=== PATIENT | male | born 1940 | race Caucasian/White ===

== ENCOUNTER 2019-10-05 15:35 | Inpatient (IN) | payer MEDICARE, OTHER ==
[~2019-10-05] VITALS: Ht 172.7 cm; Wt 60.3 kg
[~2019-10-05 15:35] MED LIST: NO HOME MEDS; PANT-47 PO; SUCR1TAB PO; TAMS0.4C32 PO
[2019-10-05] MEDS ORDERED: normal saline 1000ML IV soln IVB ONE (15:55)
[2019-10-05] MEDS ORDERED: normal saline 1000ML IV soln IV ONE ×2 (16:05→22:45)
[2019-10-05] MEDS ORDERED: dextrose 50%-water 50ml dispensing syringe IV ONE (16:35)
[2019-10-05 16:42] LABS: BASOPHILS % (AUTO) 0.1 % (0-1); HEMOGLOBIN 14.4 g/dl (14.0-17.9); LYMPHOCYTES % (AUTO) 5.9 % (21-51); MEAN CORPUSCULAR VOLUME 88.2 FL (78-98); MEAN PLATELET VOLUME 8.8 FL (7.4-10.4)
[2019-10-05 16:44] LABS: EOSINOPHILS % (AUTO) 0.1 % (0-6); HEMATOCRIT 41.9 % (42.0-52.0); LYMPHOCYTES # (AUTO) 0.5 X10'3 (1.1-4.8); MEAN CORPUSCULAR HEMOGLOBIN 30.3 PG (27.0-31.0); MEAN CORPUSCULAR HGB CONC 34.4 g/dL (33.0-36.5); MONOCYTES # (AUTO) 0.5 X10'3 (0-0.9); NEUTROPHILS # (AUTO) 8.1 X10'3 (1.8-7.7); NEUTROPHILS % (AUTO) 88.9 % (42-75); PLATELET COUNT 115 X10'3 (140-440); RED BLOOD COUNT 4.75 X10'6 (4.70-6.10); RED CELL DISTRIBUTION WIDTH 16.3 % (11.5-14.5); WHITE BLOOD COUNT 9.2 X10'3 (4.5-11.0)
[2019-10-05 16:52] LABS: PARTIAL THROMBOPLASTIN TIME 33 SECONDS (22-32)
[2019-10-05 17:01] LABS: ALANINE AMINOTRANSFERASE 93 U/L (12-78); ALBUMIN 2.8 G/DL (3.4-5.0); ALBUMIN/GLOBULIN RATIO 0.7 (1.1-1.5); ALKALINE PHOSPHATASE 130 IU/L (46-116); ANION GAP 13 (8-16); ASPARTATE AMINO TRANSFERASE 82 U/L (10-37); BILIRUBIN,TOTAL 0.5 MG/DL (0.1-1.0); BLOOD UREA NITROGEN 50 MG/DL (7-18); BUN/CREATININE RATIO 24.4 (5.4-32.0); CALCIUM 9.3 MG/DL (8.5-10.1); CHLORIDE 105 MMOL/L (99-107); CREATININE 2.05 MG/DL (0.60-1.10); ETHANOL < 0.010 GM/DL (0.0-0.010); GLUCOSE 73 MG/DL (70-104); POTASSIUM 3.7 MMOL/L (3.5-5.1); SODIUM 145 MMOL/L (135-145); TOTAL CARBON DIOXIDE 26.9 MMOL/L (24-32); TOTAL PROTEIN 6.7 G/DL (6.4-8.2); eGFR 31 ML/MIN
[2019-10-05 18:02] LABS: ACANTHOCYTES 1+; ANISOCYTOSIS 1+; BURR CELLS 1+; PLATELET ESTIMATE DECREASED; POIKILOCYTOSIS 1+; SPHEROCYTES FEW; TOTAL CELLS COUNTED 100
[2019-10-05 18:03] LABS: TOXIC VACUOLATION 1+
[2019-10-05 18:37] LABS: CLARITY,URINE CLOUDY (Clear); COLOR,URINE YELLOW (Yellow); GLUCOSE, URINE NEGATIVE (Neg); KETONES,URINE TRACE mg/dl (Neg); LEUKOCYTE ESTERASE ,URINE TRACE (Neg); NITRITES, URINE NEGATIVE (Neg); OCCULT BLOOD,URINE NEGATIVE (Neg); PROTEIN,URINE TRACE mg/dl (Neg); UA COLLECTION TYPE FOLEY CATH
[2019-10-05 18:44] LABS: HYALINE CASTS >30 /LPF (NEGATIVE); WAXY CASTS,URINE 0-3 /LPF (NEGATIVE)
[2019-10-05] MEDS ORDERED: CefTRIAXone 2gm/D5W 50ml 50 ML IV ONE (18:45)
[2019-10-05 18:46] LABS: CAL OXALATE CRYSTALS 1+ /HPF (NEGATIVE); MUCUS STRANDS FEW /LPF (Neg); SQUAMOUS EPITHELIAL CELL,UR FEW /LPF (FEW)
[2019-10-05 18:47] LABS: AMORPHOUS URATES 1+
[2019-10-05 18:48] LABS: BACTERIA,URINE 3+ /HPF (Neg); RBC,URINE 0-2 /HPF (0-2)
[2019-10-05 18:49] LABS: SPERM FEW /HPF (NEGATIVE)
[2019-10-05 18:50] LABS: RENAL CELLS, URINE MODERATE /HPF; TRANSITIONAL EPI CELLS,URINE MODERATE /HPF; URINE AMPHETAMINE SCREEN NEGATIVE (Neg); URINE BARBITUATE SCREEN NEGATIVE (Neg); URINE BENZODIAZEPINES SCREEN NEGATIVE (Neg); URINE CANNABINOID SCREEN NEGATIVE (Neg); URINE COCAINE SCREEN NEGATIVE (Neg); URINE METHADONE SCREEN NEGATIVE (Neg); URINE OPIATE SCREEN NEGATIVE (Neg); URINE PHENCYCLIDINE SCREEN NEGATIVE (Neg)
--- NOTE | 2019-10-05 19:32 | NUR ---
PATIENT EXPERIENCED SEIZURE PER FAMILY, CARLY DELGADO AT BEDSIDE STATED EYES BLINKING, MOUTH CLENCHED WITH FIXED EYE MOVEMENT TO RIGHT. PATIENT PRESENTS POST-ICTAL, SPO2 88% ON 1.5L NC, PLACED ON NON REBREATHER, DR POPE AT BEDSIDE.
[2019-10-05] MEDS ORDERED: FOSphenytoin 500mg inj. 1,000 MG in normal saline 100ml IV soln 80 ML IV ONE (19:35)
--- NOTE | 2019-10-05 19:35 | NUR ---
WHILE WALKING PAST PT ROOM, FAMILY MEMBER GRABBED ME AND STATED THAT THE PT HAD "SOMETHING WRONG" - ENTERED ROOM, PT APPEARED TO BE HAVING SEIZURE TYPE ACTIVITY. HE HAD A RIGHT GAZE, WAS BLINKING HIS EYES RAPIDLY AND CLINCHING HIS JAW. THERE WAS ALSO RIGHT ARM TWITCHING ACTIVITY. MD POPE CALLED TO BEDSIDE FOR EXAM. PTS O2 WAS INCREASED AND HE WAS ULTIMATELY PLACED ON NRBM DUE TO O2 SAT IN THE 80'S - WITH O2 PTS SAT INCREASED TO 99% - PT APPEARS POSTICTAL, NO SEIZURE ACTIVTY NOW, MEDS HAVE BEEN ORDERED AND PRIMARY RN IS AWARE. ENTIRE EPISODE LASTED APPROX 60 SECS.
--- NOTE | 2019-10-05 19:38 | NUR ---
CALL TO PHARMACY AT THIS TIME FOR FOSPHENYTOIN (SEE EMAR).
--- NOTE | 2019-10-05 20:26 | NUR ---
WINTER: GRANDDAUGHTER [phone]
--- NOTE | 2019-10-05 20:30 | NUR ---
DR POPE AWARE PATIENT BP 75/24, GRANDSON AND GRAND DAUGHTER AT BEDSIDE CONFIRMED PATIENT IS DNR. NO NEW ORDERS AT THIS TIME.
--- NOTE | 2019-10-05 20:40 | NUR ---
Daughter at patient bedside, spoke with DR graham, agreed comfort care at this time.
[2019-10-05] MEDS ORDERED: normal saline 500ml IV soln 1,000 ML IV ONE (22:25)
[2019-10-05] MEDS ORDERED: atropine 1 MG/1 ML vial IV ONE ×2 (22:25→22:40)
[2019-10-05] MEDS ORDERED: acetaminophen 325mg tablet PO PRN (22:30)
[2019-10-05] MEDS ORDERED: magnesium 4gm in 100ml NS 100 ML IV PRN (22:30)
[2019-10-05] MEDS ORDERED: potassium Cl 20 mEq SR tablet PO PRN ×2 (22:30)
[2019-10-05] MEDS ORDERED: magnesium 2GM in 50ml NS 50 ML IV PRN (22:30)
[2019-10-05] MEDS ORDERED: mag hydrox/Alum hydrox/simeth 30ml oral suspension PO PRN (22:30)
[2019-10-05] MEDS ORDERED: ondansetron/PF 4mg/2ml inj IV PRN (22:30)
--- NOTE | 2019-10-05 22:36 | NUR ---
Spoke to Dr. Chowdhury regarding plan of care for the patient. He states that he spoke to family over the phone and they want to give some IV fluids and medicine to improve his heart rate. Order for 500mL bolus of normal saline and 0.5mg of atropine given. Orders placed and medications given.
[2019-10-05] MEDS ORDERED: piperacillin/tazo 3.375gm/50ml 50 ML IV ONE ×2 (22:40)
[2019-10-05] MEDS ORDERED: normal saline 1000ml 1,000 ML IV ONE (22:45)
--- NOTE | 2019-10-05 22:53 | NUR ---
Dr. Chowdhury and Dr. Chris at bedside. 1 additional liter of saline and 3.375 grams of zosyn ordered by Dr. Chris. Dr. Chowdhury orders and additional 1mg of atropine. Both MD aware of patient's vital signs.
[2019-10-05] MEDS ORDERED: DOPamine 400mg/D5W 250ml 250 ML IV PRN (23:04)
--- NOTE | 2019-10-05 23:04 | NUR ---
Spoke to Dr. Chowdhury about the patient's current blood pressure and how agressive the blood pressure needs to be treated as the patient's family requests him to be comfort care only several hours ago. Dr. Chowdhury states he needs to speak with the patient's family member who is making decisions for him. Dr. Chowdhury is aware of the patient's vital signs.
[2019-10-05] MEDS: DOPamine 400mg/D5W 250ml 250 ML IV PRN (23:17)
--- NOTE | 2019-10-05 23:19 | NUR ---
Dopamine ordered by Dr. Chowdhury. Dopamine will be started via PIV at this time as the family does not want the patient to have a central line placed but wants to treat his blood pressure.
--- NOTE | 2019-10-05 23:30 | NUR ---
Received patient report from CARLY Hay. Patients family brought him in for ALOC for over a week. Started having facial drooping and drooling today. In ER SBP 61/28. HR 40s. they gave several liters of fluid boluses and a few amps of atropine. Beaver cath in place. patient placed on dopamine drip and fluids. Positive for UTI. comfort care is being discussed with family.
[2019-10-05] MEDS: normal saline 1000ml 1,000 ML IV SCH (23:46)
--- NOTE | 2019-10-05 23:48 | NUR ---
Dr Boswell talking with Twist Maker and the daughter about decisions.
--- NOTE | 2019-10-05 23:51 | NUR ---
Blood pressure 118/62 with a heart rate of 85. Dopamine is at 20mcg/kg/min and Dr. Chowdhury is aware. Patient's daughter is here and declines central line placement and wants to have a PICC line placed tomorrow. Dopamine will continue to run PIV with with no signs of redness or pain to the site.
[2019-10-06] VITALS (23 sets, daily range): BP systolic 94–136; BP diastolic 33–74
--- NOTE | 2019-10-06 00:45 | NUR ---
Patient arrived to [facility] via [facility]. patient transferred from [facility] to bed via slide board. patient arrived on Dopamine drip at 5mcg/kg/min and NS running at 100ml/hr. Patient vital signs stable. patient on O2 at 5L via mask. Patients daughter (Ai) at the bedside. Patient arrived with all known belongings.
--- NOTE | 2019-10-06 01:29 | NUR ---
PAGER ID: [phone] MESSAGE: [phone] pt Spurr urine temp in fierro is 31.8 C and rectal is 88.9 F Please advise on tristan kennedy. - [phone] [id number] Addendum: 10/06/19 at 0151 by Marjorie Harris RN Okay to use per MD Chowdhury.
--- NOTE | 2019-10-06 01:35 | NUR ---
Patient placed on large K pad to help with rewarming. Patients Baever temp is 31.8C. Rectal temp of 88.9F.
--- NOTE | 2019-10-06 01:40 | NUR ---
Paged RT to put the patient on Bipap.
--- NOTE | 2019-10-06 02:15 | NUR ---
RT placed Patient on Bipap. saturation percentage in the 90s.
--- NOTE | 2019-10-06 02:30 | NUR ---
Patients Normal saline being warmed in fluid warmer per MD orders
--- NOTE | 2019-10-06 06:00 | NUR ---
Patient in room MED 307. I have received report from CARLY Pham and had the opportunity to ask questions and assume patient care.
--- NOTE | 2019-10-06 06:25 | NUR ---
Problems reprioritized. Patient report given, questions answered & plan of care reviewed with CARLY Cope.
[2019-10-06 06:43] LABS: BASOPHILS % (AUTO) 0.1 % (0-1); EOSINOPHILS % (AUTO) 0.3 % (0-6); HEMATOCRIT 46.9 % (42.0-52.0); HEMOGLOBIN 15.9 g/dl (14.0-17.9); LYMPHOCYTES # (AUTO) 0.3 X10'3 (1.1-4.8); LYMPHOCYTES % (AUTO) 6.5 % (21-51); MEAN CORPUSCULAR HEMOGLOBIN 30.7 PG (27.0-31.0); MEAN CORPUSCULAR HGB CONC 33.8 g/dL (33.0-36.5); MEAN CORPUSCULAR VOLUME 90.8 FL (78-98); MEAN PLATELET VOLUME 8.7 FL (7.4-10.4); MONOCYTES # (AUTO) 0.2 X10'3 (0-0.9); MONOCYTES % (AUTO) 4.1 % (2-12); NEUTROPHILS # (AUTO) 4.3 X10'3 (1.8-7.7); PLATELET COUNT 86 X10'3 (140-440); RED BLOOD COUNT 5.17 X10'6 (4.70-6.10); RED CELL DISTRIBUTION WIDTH 16.7 % (11.5-14.5); WHITE BLOOD COUNT 4.8 X10'3 (4.5-11.0)
[2019-10-06 07:03] LABS: ALANINE AMINOTRANSFERASE 110 U/L (12-78); ALBUMIN 2.6 G/DL (3.4-5.0); ALBUMIN/GLOBULIN RATIO 0.6 (1.1-1.5); ALKALINE PHOSPHATASE 158 IU/L (46-116); ANION GAP 16 (8-16); ASPARTATE AMINO TRANSFERASE 108 U/L (10-37); BILIRUBIN,TOTAL 0.5 MG/DL (0.1-1.0); BLOOD UREA NITROGEN 40 MG/DL (7-18); CALCIUM 8.2 MG/DL (8.5-10.1); CHLORIDE 111 MMOL/L (99-107); CREATININE 1.38 MG/DL (0.60-1.10); GLUCOSE 103 MG/DL (70-104); MAGNESIUM 1.5 MG/DL (1.5-2.4); POTASSIUM 3.2 MMOL/L (3.5-5.1); SODIUM 148 MMOL/L (135-145); TOTAL CARBON DIOXIDE 21.4 MMOL/L (24-32); TOTAL PROTEIN 6.7 G/DL (6.4-8.2); eGFR 50 ML/MIN
[2019-10-06] MEDS: docusate sod 100mg capsule PO SCH ×2 (08:00→20:00)
[2019-10-06] MEDS: K and/or MAG REPLACEMENT MC SCH ×2 (08:00→20:00)
[2019-10-06 08:06] LABS: ANISOCYTOSIS 1+; PLATELET ESTIMATE DECREASED; POLYCHROMASIA FEW; TOTAL CELLS COUNTED 100
[2019-10-06] MEDS: piperacillin/tazo 3.375gm/50ml 50 ML IV SCH ×2 (08:51→16:49)
[2019-10-06] MEDS: heparin, porcine 5000 units/ml vial SQ SCH ×2 (08:52→20:00)
[2019-10-06] MEDS: normal saline 1000ml 1,000 ML IV SCH ×3 (08:52→22:54)
[2019-10-06] MEDS: potassium CL 10mEq/100ml bag 100 ML IV PRN ×4 (08:53→14:03)
--- NOTE | 2019-10-06 12:00 | NUR ---
Family unavailable to verify home medications for this patient. Addendum: 10/06/19 at 1559 by Prisca Oreilly RN Amended: Links added.
[2019-10-06 12:41] LABS: ABG BASE EXCESS -4.2 mmol/L (-2.0-3.0); ABG HCO3 20.6 mmol/L (22.0-26.0); ABG OXYGEN SATURATION 98.2 % (95-98); ABG PCO2 (T) 36.9 mmHg (35.0-45.0); ABG PH (T) 7.364 (7.350-7.450); ABG PO2 (T) 123.1 mmHg (83-108); FCOHb 0.2 % (0.5-1.5); FMetHb 0.2 % (0.3-1.12); FO2Hb 97.8 % (94-100); MINUTE VOLUME 14 L/min; RESPIRATORY RATE 20 b/min; RESPIRATORY RATE (OBSERVED) 20 b/min; TIDAL VOLUME 570 mL; TOTAL HEMOGLOBIN 14.4 G/dl (14.0-17.9)
[2019-10-06] MEDS: vancomycin/NS 1 GM ADD-VANTAGE 250 ML X 1 DOSE IV SCH ×2 (14:03→22:35)
--- NOTE | 2019-10-06 15:55 | NUR ---
Report given to CARLY Garcia on PCU. All questions answered.
--- NOTE | 2019-10-06 15:55 | NUR ---
Patient in room MED 307. I have received report from Ghazal from [facility] and had the opportunity to ask questions and assume patient care.
--- NOTE | 2019-10-06 16:30 | NUR ---
Low BMI trigger: BMI 18.3. Pt admit w/ ALOC hx dementia, hasn't taken meds in years, currently AOx0, and hx bedbound past year per EMR. DX severe sepsis w/ hypotension requiring fluids since MAP fell to 40's on admit, and metabolic encephalopathy per MD note. MAP 91 today. Pt current strength is rigid and has open area to coccyx w/ multiple large blisters to LLE per EMR. Pt not appropriate for RD visit and family not present. RN reports pt has severe visible cachexia. Given cachexia, rigid strength and current open wounds was likely not meeting needs prior to admit and qualifies for severe malnutrition at this time. MD notified. Pt remains NPO pending SP BSS. Per EMR, daughter requests pt to stay comfortable w/ possibility of future comfort measures. IF pt remains NPO per SP recs and no code status change comfort care; will need alternative nutrition this admit. Will continue to monitor for SP recs and any changes in code status. Rec: 1. advance diet per SP recs to regular 2. monitor for ONS if cleared for PO diet IF approved for thin liquids per SP 3. IF no change in code status and NPO per SP; consider alternative nutrition for repletion needs 4. bowel care as needed 5. weekly wts 6. monitor for changes in code status Addendum: 10/06/19 at [address] Amended: Links added.
--- NOTE | 2019-10-06 17:08 | NUR ---
Received patient, assumed care and obtained vital signs. Patient was hooked up to mobile 62. Currently in normal sinus rhythm. Patients sp02 is 100% on Bipap @ 100% fi02. Patient is non responsive to verbal or physical stimuli. Patient occasionally grunts. Patient was positioned with pillows r/t multiple wounds and blisters. Patient has been assessed by wound care and pictures were obtained just prior to transferring to PCU therefore a 2 RN skin check was not completed. Family is at bedside, requesting to speak with MD to see what the POC of care is. Will monitor and report off to noc shift.
--- NOTE | 2019-10-06 18:00 | NUR ---
Patient in room PCU 3029P. I have received report from CARLY Bell and had the opportunity to ask questions and assume patient care. Dr. Mojica at bedside with family discussing plan of care. Patient on 5mcg/kg/min dopamine and NS infusing at 100 mL/hr per provider order.
--- NOTE | 2019-10-06 18:00 | NUR ---
[id number] Alexandro Perez - Family at bedside, requesting to speak with you regarding POC. Kim CARROLL PCU
--- NOTE | 2019-10-06 18:33 | NUR ---
Problems reprioritized. Patient report given, questions answered & plan of care reviewed with Mandeep, reviewed medications currently running. MD at bedside speaking with family about POC. Patient positioned on right side. Pupils assessed with 2 RN's, pupils are 2 mm and not reactive to light. Patients vital signs are stable at time of transfer.
--- NOTE | 2019-10-06 19:16 | NUR ---
PAGER ID: [phone] MESSAGE: Ext. [phone], CARLY Kaufman. Tech is available to transport. Do you want me to go ahead and put the order in. Respiratory needs to be present. For the screening form GFR is 50, BUN 40, Creatinine 1.38. Unknown if previous reaction to contrast.
[2019-10-06] MEDS ORDERED: iohexol 350MG/ML 100ml bottle IV ONE (19:35)
--- NOTE | 2019-10-06 22:32 | NUR ---
1130 am dose of STAT vancomycin not administered during day shift. Called pharmacy to confirm STAT administration during 10/06/19 NOC shift and was approved. Pharmacy will adjust schedule accordingly.
--- NOTE | 2019-10-06 22:38 | NUR ---
PLT count 86. Heparin held per nursing judgement. Patient has SCD's and will continue to monitor closely.
[2019-10-06] MEDS: DOPamine 400mg/D5W 250ml 250 ML IV PRN (23:28)
[2019-10-07] VITALS (9 sets, daily range): BP systolic 42–129; BP diastolic 25–71
--- NOTE | 2019-10-07 00:45 | NUR ---
PAGER ID: [phone] MESSAGE: Ext. [phone]. CARLY Kaufman for [id number] Spurr admitted for encephalopathy, arachnoid cyst. Daughter of pt inquiring about nutrition since he is NPO with multiple wounds. She is at bedside and was wanting to speak with you directly. Addendum: 10/07/19 at 0658 by Devan Araya RN Spoke with Dr. Chowdhury via telephone. No new orders at this time. Recommendations for midline, nutrition, and pain management to be discussed tomorrow with day time hospitalist.
[2019-10-07] MEDS: piperacillin/tazo 3.375gm/50ml 50 ML IV SCH ×2 (01:02→09:31)
[2019-10-07 05:24] LABS: BASOPHILS % (AUTO) 0.2 % (0-1); EOSINOPHILS % (AUTO) 0.3 % (0-6); LYMPHOCYTES # (AUTO) 0.3 X10'3 (1.1-4.8); MEAN CORPUSCULAR HEMOGLOBIN 30.5 PG (27.0-31.0); MONOCYTES # (AUTO) 0.2 X10'3 (0-0.9)
[2019-10-07 05:26] LABS: HEMOGLOBIN 13.4 g/dl (14.0-17.9); LYMPHOCYTES % (AUTO) 4.8 % (21-51); MEAN CORPUSCULAR HGB CONC 34.4 g/dL (33.0-36.5); MEAN CORPUSCULAR VOLUME 88.8 FL (78-98); MONOCYTES % (AUTO) 3.7 % (2-12); NEUTROPHILS # (AUTO) 5.1 X10'3 (1.8-7.7); RED BLOOD COUNT 4.39 X10'6 (4.70-6.10); RED CELL DISTRIBUTION WIDTH 16.9 % (11.5-14.5); WHITE BLOOD COUNT 5.6 X10'3 (4.5-11.0)
[2019-10-07 05:55] LABS: ALANINE AMINOTRANSFERASE 69 U/L (12-78); ALBUMIN 1.8 G/DL (3.4-5.0); ALBUMIN/GLOBULIN RATIO 0.5 (1.1-1.5); ALKALINE PHOSPHATASE 104 IU/L (46-116); ANION GAP 12 (8-16); ASPARTATE AMINO TRANSFERASE 66 U/L (10-37); BILIRUBIN,TOTAL 0.5 MG/DL (0.1-1.0); BLOOD UREA NITROGEN 27 MG/DL (7-18); BUN/CREATININE RATIO 32.1 (5.4-32.0); CALCIUM 7.6 MG/DL (8.5-10.1); CHLORIDE 116 MMOL/L (99-107); CREATININE 0.84 MG/DL (0.60-1.10); GLUCOSE 54 MG/DL (70-104); MAGNESIUM 1.3 MG/DL (1.5-2.4); POTASSIUM 3.5 MMOL/L (3.5-5.1); SODIUM 146 MMOL/L (135-145); TOTAL PROTEIN 5.1 G/DL (6.4-8.2); eGFR 88 ML/MIN
--- NOTE | 2019-10-07 06:58 | NUR ---
Problems reprioritized. Patient report given, questions answered & plan of care reviewed with CARLY Porter and CARLY Joseph.
[2019-10-07 07:00] LABS: ANISOCYTOSIS 1+; PLATELET ESTIMATE DECREASED; TOTAL CELLS COUNTED 100
[2019-10-07 07:01] LABS: BURR CELLS 2+; POLYCHROMASIA FEW; SCHISTOCYTES FEW
[2019-10-07 07:04] LABS: PLATELET COUNT 50 X10'3 (140-440)
--- NOTE | 2019-10-07 07:17 | NUR ---
Received critical value: platlets 50, Dr. Mojica paged with value within 30 minutes.
[2019-10-07] MEDS: K and/or MAG REPLACEMENT MC SCH ×2 (08:00→20:00)
[2019-10-07] MEDS: heparin, porcine 5000 units/ml vial SQ SCH (08:00)
[2019-10-07] MEDS: docusate sod 100mg capsule PO SCH ×2 (08:00→20:00)
--- NOTE | 2019-10-07 08:33 | NUR ---
PAGER ID: [phone] MESSAGE: [id number]: SELWYN FERNANDEZ. Pts BP 54/28. Rapid has been called. Can family consider Comfort Care. Thanks Ai CARROLL [phone]
[2019-10-07] MEDS ORDERED: VANCOMYCIN 750MG IV in NS 250 ML IV SCH (10:00)
--- NOTE | 2019-10-07 11:18 | NUR ---
PAGER ID: [phone] MESSAGE: [phone]: SELWYN FERNANDEZ. Family is at the bedside. Thanks Ai CARROLL [phone]
[2019-10-07 12:26] LABS: ALLEN'S TEST POSITIVE
[2019-10-07] MEDS ORDERED: dextrose 50%-water 50ml dispensing syringe IV ONE (12:44)
--- NOTE | 2019-10-07 12:44 | NUR ---
BG at morning labs was 54, recheck and BG 41, D50 being given
[2019-10-07] MEDS ORDERED: dextrose 50%-water 50ml dispensing syringe IV PRN ×2 (12:55)
--- NOTE | 2019-10-07 12:58 | NUR ---
PAGER ID: [phone] MESSAGE: [id number]: SELWYN FERNANDEZ. Pts family has decided to proceed with Comfort Care. Pts blood sugar was 41. Dextrose pushed prior to family's decision. Thanks Ai CARROLL [phone]
[2019-10-07] MEDS ORDERED: LORazepam 2 mg/ml vial IV PRN (13:00)
[2019-10-07] MEDS ORDERED: morphine 10mg/0.5ml (conc. morphine) oral syringe PO PRN (13:00)
[2019-10-07] MEDS ORDERED: morphine 10mg/ml inj. IV PRN (13:00)
--- NOTE | 2019-10-07 13:49 | NUR ---
Family wants to wait for one more family member to arrive prior to removing drips/bipap. Dr. Mojica aware
--- NOTE | 2019-10-07 17:31 | NUR ---
Patient in room U 3008. I have received report from CARLY Kaufman and had the opportunity to ask questions and assume patient care. Addendum: 10/07/19 at 1734 by Charlotte Vázquez RN change time to 0615
--- NOTE | 2019-10-07 18:24 | NUR ---
Problems reprioritized. Patient report given, questions answered & plan of care reviewed with CARLY Ramos.
--- NOTE | 2019-10-07 18:39 | NUR ---
Patient in room PCU 3008. I have received report from Charlotte Shen RN and had the opportunity to ask questions and assume patient care. pt is on comfort care, family at bedside and are aware of current condition.
[2019-10-07] MEDS: lactobacillus rhamnosus 10,000 MMU CELLS/CAPSULE PO SCH (20:00)
[2019-10-07] MEDS ORDERED: VANCOMYCIN LEVEL IV ONE (21:30)
[2019-10-08 06:00] VITALS: BP 82/42
--- NOTE | 2019-10-08 06:35 | NUR ---
Problems reprioritized. Patient report given, questions answered & plan of care reviewed with Charlotte Shen RN.
[2019-10-08] MEDS: docusate sod 100mg capsule PO SCH ×2 (08:00→19:22)
[2019-10-08] MEDS: lactobacillus rhamnosus 10,000 MMU CELLS/CAPSULE PO SCH ×2 (08:00→19:22)
[2019-10-08] MEDS: K and/or MAG REPLACEMENT MC SCH ×2 (08:00→19:22)
[2019-10-08 11:00] VITALS: BP 93/42
--- NOTE | 2019-10-08 11:19 | NUR ---
Reassessment: Pt has been made DNR with comfort care. Remains NPO at this time. Will continue to follow per LOS protocol. Rec: 1. bowel care per comfort care measures Addendum: 10/08/19 at [address] Amended: Links added.
[2019-10-08] MEDS: vancomycin inj. 750 MG in normal saline 250ml IV soln 250 ML IV SCH (11:52)
[2019-10-08] MEDS: potassium CL 20mEq in D5-1/2NS 1,000 ML IV SCH (11:53)
[2019-10-08 15:00] VITALS: BP 91/52
--- NOTE | 2019-10-08 15:30 | NUR ---
PAGER ID: [phone] MESSAGE: CARLY Porter, ext [phone], Vishalr, patient c/o pain, morphine was DC'd with comfort care orders so he only has po Tylenol (still NPO) ordered. family asking about nutrition though I did explain that the D5 is providing some.
[2019-10-08] MEDS: piperacillin/tazo 3.375gm/50ml 50 ML IV SCH (15:54)
--- NOTE | 2019-10-08 16:35 | NUR ---
PAGER ID: [phone] MESSAGE: CARLY Porter, ext [phone], Ana, patient bradycardic in 40s sustaining.
[2019-10-08] MEDS ORDERED: atropine 1 MG/1 ML vial IV ONE (17:50)
--- NOTE | 2019-10-08 18:13 | NUR ---
Problems reprioritized. Patient report given, questions answered & plan of care reviewed with CARLY Ramos.
--- NOTE | 2019-10-08 18:29 | NUR ---
Patient in room PCU 3008. I have received report from Charlotte Shen RN and had the opportunity to ask questions and assume patient care. pt is no longer comfort care.
[2019-10-08 18:40] LABS: BASOPHILS % (AUTO) 0.1 % (0-1); EOSINOPHILS % (AUTO) 0.7 % (0-6); HEMATOCRIT 32.6 % (42.0-52.0); HEMOGLOBIN 11.3 g/dl (14.0-17.9); LYMPHOCYTES # (AUTO) 0.4 X10'3 (1.1-4.8); MEAN CORPUSCULAR HEMOGLOBIN 30.4 PG (27.0-31.0); MEAN CORPUSCULAR HGB CONC 34.7 g/dL (33.0-36.5); MEAN CORPUSCULAR VOLUME 87.7 FL (78-98); MONOCYTES # (AUTO) 0.2 X10'3 (0-0.9); MONOCYTES % (AUTO) 3.4 % (2-12); NEUTROPHILS # (AUTO) 5.3 X10'3 (1.8-7.7); NEUTROPHILS % (AUTO) 89.8 % (42-75); RED BLOOD COUNT 3.71 X10'6 (4.70-6.10); RED CELL DISTRIBUTION WIDTH 16.7 % (11.5-14.5); WHITE BLOOD COUNT 5.9 X10'3 (4.5-11.0)
[2019-10-08 18:51] LABS: ALANINE AMINOTRANSFERASE 57 U/L (12-78); ALBUMIN 1.7 G/DL (3.4-5.0); ALBUMIN/GLOBULIN RATIO 0.6 (1.1-1.5); ALKALINE PHOSPHATASE 99 IU/L (46-116); ANION GAP 7 (8-16); ASPARTATE AMINO TRANSFERASE 44 U/L (10-37); BILIRUBIN,TOTAL 0.6 MG/DL (0.1-1.0); BLOOD UREA NITROGEN 29 MG/DL (7-18); BUN/CREATININE RATIO 29.9 (5.4-32.0); CALCIUM 7.9 MG/DL (8.5-10.1); CHLORIDE 118 MMOL/L (99-107); CREATININE 0.97 MG/DL (0.60-1.10); GLUCOSE 124 MG/DL (70-104); MAGNESIUM 1.8 MG/DL (1.5-2.4); PHOSPHORUS 1.4 MG/DL (2.3-4.5); SODIUM 148 MMOL/L (135-145); TOTAL CARBON DIOXIDE 23.4 MMOL/L (24-32); TOTAL PROTEIN 4.7 G/DL (6.4-8.2); eGFR 74 ML/MIN
[2019-10-08 18:55] LABS: PLATELET COUNT 44 X10'3 (140-440)
[2019-10-08 18:58] LABS: POTASSIUM 2.7 MMOL/L (3.5-5.1)
[2019-10-08 19:00] VITALS: BP 86/42
--- NOTE | 2019-10-08 19:06 | NUR ---
NOTIFIED PAGER ID: [phone] MESSAGE: Alexandro Perez, [id number]- Critical values, PLT 44, K 2.7. will start K replacement as ordered. Jaron CARROLL
[2019-10-08] MEDS: potassium CL 10mEq/100ml bag 100 ML IV PRN ×2 (19:18→20:31)
[2019-10-08] MEDS ORDERED: vancomycin inj. 750 MG in normal saline 250ml IV soln 250 ML IV SCH (20:00)
[2019-10-08 23:00] VITALS: BP 92/48
[2019-10-08] MEDS ORDERED: potassium Cl 20 mEq SR tablet PO PRN ×2 (23:30)
[2019-10-09] MEDS: potassium CL 10mEq/100ml bag 100 ML IV PRN ×4 (00:02→04:30)
[2019-10-09] MEDS: vancomycin inj. 750 MG in normal saline 250ml IV soln 250 ML IV SCH ×2 (00:33→15:48)
[2019-10-09] MEDS: piperacillin/tazo 3.375gm/50ml 50 ML IV SCH ×3 (02:54→16:01)
[2019-10-09 03:00] VITALS: BP 109/61
[2019-10-09 05:17] LABS: ALANINE AMINOTRANSFERASE 51 U/L (12-78); ALBUMIN 1.6 G/DL (3.4-5.0); ALBUMIN/GLOBULIN RATIO 0.5 (1.1-1.5); ALKALINE PHOSPHATASE 98 IU/L (46-116); ANION GAP 9 (8-16); ASPARTATE AMINO TRANSFERASE 38 U/L (10-37); BILIRUBIN,TOTAL 0.6 MG/DL (0.1-1.0); BLOOD UREA NITROGEN 24 MG/DL (7-18); BUN/CREATININE RATIO 28.2 (5.4-32.0); CALCIUM 7.8 MG/DL (8.5-10.1); CHLORIDE 118 MMOL/L (99-107); CREATININE 0.85 MG/DL (0.60-1.10); GLUCOSE 92 MG/DL (70-104); POTASSIUM 3.6 MMOL/L (3.5-5.1); SODIUM 147 MMOL/L (135-145); TOTAL CARBON DIOXIDE 20.4 MMOL/L (24-32); TOTAL PROTEIN 4.6 G/DL (6.4-8.2); eGFR 87 ML/MIN
[2019-10-09 05:23] LABS: BASOPHILS % (AUTO) 0.1 % (0-1); EOSINOPHILS % (AUTO) 0.8 % (0-6); HEMATOCRIT 31.2 % (42.0-52.0); HEMOGLOBIN 10.9 g/dl (14.0-17.9); LYMPHOCYTES # (AUTO) 0.4 X10'3 (1.1-4.8); LYMPHOCYTES % (AUTO) 6.2 % (21-51); MEAN CORPUSCULAR HEMOGLOBIN 30.4 PG (27.0-31.0); MEAN CORPUSCULAR HGB CONC 34.9 g/dL (33.0-36.5); MEAN CORPUSCULAR VOLUME 87.1 FL (78-98); MEAN PLATELET VOLUME 8.7 FL (7.4-10.4); MONOCYTES # (AUTO) 0.2 X10'3 (0-0.9); MONOCYTES % (AUTO) 3.6 % (2-12); NEUTROPHILS # (AUTO) 5.2 X10'3 (1.8-7.7); NEUTROPHILS % (AUTO) 89.3 % (42-75); RED BLOOD COUNT 3.59 X10'6 (4.70-6.10); RED CELL DISTRIBUTION WIDTH 16.9 % (11.5-14.5); WHITE BLOOD COUNT 5.8 X10'3 (4.5-11.0)
[2019-10-09 05:34] LABS: PLATELET COUNT 43 X10'3 (140-440)
--- NOTE | 2019-10-09 05:36 | NUR ---
NOTIFIED CRITICAL VALUE PAGER ID: [phone] MESSAGE: Alexandro Perez, [id number]- critical PLT 43, previous 44.
[2019-10-09 05:55] LABS: ANISOCYTOSIS 1+; BURR CELLS 2+; NUCLEATED RED BLOOD CELLS 1 /100WBC (0-0); PLATELET ESTIMATE DECREASED; POLYCHROMASIA FEW; TOTAL CELLS COUNTED 100
[2019-10-09 06:00] VITALS: BP 110/60
[2019-10-09] MEDS: K and/or MAG REPLACEMENT MC SCH ×5 (06:30→20:00)
--- NOTE | 2019-10-09 06:30 | NUR ---
Problems reprioritized. Patient report given, questions answered & plan of care reviewed with Tayla Medina RN.
--- NOTE | 2019-10-09 06:48 | NUR ---
Patient in room PCU 3008. I have received report from CARLY Salmeron and had the opportunity to ask questions and assume patient care.
[2019-10-09] MEDS: lactobacillus rhamnosus 10,000 MMU CELLS/CAPSULE PO SCH ×2 (08:00→20:00)
[2019-10-09] MEDS: docusate sod 100mg capsule PO SCH ×2 (08:00→20:00)
[2019-10-09] MEDS: potassium CL 20mEq in D5-1/2NS 1,000 ML IV SCH ×2 (09:26→09:28)
[2019-10-09] MEDS ORDERED: MESSAGE TO NURSING IV ONE (10:30)
[2019-10-09 11:00] VITALS: BP 114/64
--- NOTE | 2019-10-09 13:56 | NUR ---
Reassessment: Patient's condition started to improve with improved oxygenation, off BiPAP, and body temperature normal per MD notes. Patient's code status has been changed to limited DNR. Pt s/p BSS today with recs NPO d/t pt unsafe for PO intake. Pt is unresponsive and obtunded per physical assessment. Pt would benefit from nutrition support if expected to have prolonged NPO status, recommendations below. LB 10/09. Will continue to follow. Rec: 1. PO diet advancement to regular as medically indicated if safe for PO intake per recs 2. If expected prolonged NPO, recommend continuous TF using Jevity 1.2 with goal rate of 70 mL/hr 3. Routine bowel care 4. Wt per rx Addendum: 10/09/19 at [address] Amended: Links added.
[2019-10-09 15:00] VITALS: BP 119/68
[2019-10-09 18:00] VITALS: BP 99/51
--- NOTE | 2019-10-09 18:30 | NUR ---
Patient in room PCU 3008. I have received report from Tayla Medina RN and had the opportunity to ask questions and assume patient care.
[2019-10-09 22:00] VITALS: BP 102/63
[2019-10-09] MEDS ORDERED: VANCOMYCIN LEVEL IV ONE (23:30)
[2019-10-10] MEDS: potassium CL 20mEq in D5-1/2NS 1,000 ML IV SCH ×3 (00:13→20:49)
[2019-10-10] MEDS: vancomycin inj. 750 MG in normal saline 250ml IV soln 250 ML IV SCH ×3 (00:14→23:53)
[2019-10-10] MEDS: piperacillin/tazo 3.375gm/50ml 50 ML IV SCH ×4 (01:56→23:53)
[2019-10-10 02:00] VITALS: BP 128/69
[2019-10-10 05:26] LABS: BASOPHILS % (AUTO) 0.2 % (0-1); EOSINOPHILS # (AUTO) 0.1 X10'3 (0-0.9); EOSINOPHILS % (AUTO) 1.7 % (0-6); HEMOGLOBIN 11.3 g/dl (14.0-17.9); LYMPHOCYTES # (AUTO) 0.4 X10'3 (1.1-4.8); LYMPHOCYTES % (AUTO) 6.1 % (21-51); MEAN CORPUSCULAR HEMOGLOBIN 31.1 PG (27.0-31.0); MEAN CORPUSCULAR HGB CONC 35.3 g/dL (33.0-36.5); MEAN CORPUSCULAR VOLUME 88.3 FL (78-98); MONOCYTES # (AUTO) 0.2 X10'3 (0-0.9); MONOCYTES % (AUTO) 3.3 % (2-12); NEUTROPHILS # (AUTO) 5.4 X10'3 (1.8-7.7); NEUTROPHILS % (AUTO) 88.7 % (42-75); RED BLOOD COUNT 3.63 X10'6 (4.70-6.10); RED CELL DISTRIBUTION WIDTH 16.6 % (11.5-14.5); WHITE BLOOD COUNT 6.1 X10'3 (4.5-11.0)
[2019-10-10 05:40] LABS: PLATELET COUNT 42 X10'3 (140-440)
--- NOTE | 2019-10-10 05:46 | NUR ---
CRITICAL VALUES NOTIFIED PAGER ID: [phone] MESSAGE: Alexandro Perez, [id number]- Critical value PLT 42, last PLTs were 43,44,50. daly RN
[2019-10-10 06:00] VITALS: BP 111/63
[2019-10-10 06:01] LABS: ALANINE AMINOTRANSFERASE 47 U/L (12-78); ALBUMIN 1.7 G/DL (3.4-5.0); ALBUMIN/GLOBULIN RATIO 0.5 (1.1-1.5); ALKALINE PHOSPHATASE 107 IU/L (46-116); ANION GAP 11 (8-16); ASPARTATE AMINO TRANSFERASE 36 U/L (10-37); BILIRUBIN,TOTAL 0.6 MG/DL (0.1-1.0); BLOOD UREA NITROGEN 17 MG/DL (7-18); BUN/CREATININE RATIO 22.4 (5.4-32.0); CALCIUM 8.1 MG/DL (8.5-10.1); CHLORIDE 117 MMOL/L (99-107); CREATININE 0.76 MG/DL (0.60-1.10); GLUCOSE 122 MG/DL (70-104); POTASSIUM 3.6 MMOL/L (3.5-5.1); SODIUM 147 MMOL/L (135-145); TOTAL CARBON DIOXIDE 18.7 MMOL/L (24-32); eGFR > 90 ML/MIN
--- NOTE | 2019-10-10 06:30 | NUR ---
Problems reprioritized. Patient report given, questions answered & plan of care reviewed with Tayla Medina RN.
--- NOTE | 2019-10-10 06:38 | NUR ---
Patient in room PCU 3008. I have received report from CARLY Salmeron and had the opportunity to ask questions and assume patient care.
[2019-10-10] MEDS: docusate sod 100mg capsule PO SCH (08:00)
[2019-10-10] MEDS: K and/or MAG REPLACEMENT MC SCH ×3 (08:00→20:00)
[2019-10-10] MEDS: lactobacillus rhamnosus 10,000 MMU CELLS/CAPSULE PO SCH ×2 (08:00→22:08)
[2019-10-10 11:00] VITALS: BP 120/62
--- NOTE | 2019-10-10 11:19 | NUR ---
TF consult: Per KUDarren pt with malpositioned NG tube as it kinked back on itself in the esophagus, d/w RN. TF recommendations below calculated to meet 100% of patient's estimated nutrient needs using IBW to begin once NG tube confirmed in appropriate location. [facility] 10/09. Will continue to follow closely. Reassessment: Patient's condition started to improve with improved oxygenation, off BiPAP, and body temperature normal per MD notes. Patient's code status has been changed to limited DNR. Pt s/p BSS today with ST recs NPO d/t pt unsafe for PO intake. Pt is unresponsive and obtunded per physical assessment. Pt would benefit from nutrition support if expected to have prolonged NPO status, recommendations below. LB 10/09. Will continue to follow. Rec: 1. Once NG confirmed in appropriate location, continuous TF using Jevity 1.2 with goal rate of 70 mL/hr to provide: 1680 mL total volume/day, 2016 kcal, 93 g protein, and 1356 mL water 2. Additional 150 mL water flush Q4H; Monitor hydration status and need to adjust fluid flushes, Na 147 today 3. Prealbumin q / 4. Daily weights 5. PO diet advancement to regular as medically indicated if safe for PO intake per ST recs 6. Routine bowel care Addendum: 10/10/19 at [address] Amended: Links added.
[2019-10-10] MEDS ORDERED: VANCOMYCIN LEVEL IV ONE (11:30)
--- NOTE | 2019-10-10 11:30 | NUR ---
NG tube malplaced will attempt again.
[2019-10-10] MEDS: dextrose 5%-water 1,000 ML IV SCH (12:25)
[2019-10-10 15:00] VITALS: BP 107/68
--- NOTE | 2019-10-10 15:12 | NUR ---
[phone] MESSAGE: Alexandro Perez Rm [phone] Clarify IV fluids Please CARLY Bourne ext [phone]
--- NOTE | 2019-10-10 17:34 | NUR ---
Jevity 1.2 started per NG @ 20ml/hr
--- NOTE | 2019-10-10 18:37 | NUR ---
Problems reprioritized. Patient report given, questions answered & plan of care reviewed with CARLY Bill.
--- NOTE | 2019-10-10 18:46 | NUR ---
Patient in room PCU 3008. I have received report from Tayla CARROLL, and had the opportunity to ask questions and assume patient care.
[2019-10-10 19:00] VITALS: BP 106/53
[2019-10-10] MEDS: Potassium Cl inj 20 MEQ in dextrose 5%-water 1,000 ML IV SCH (20:06)
[2019-10-10] MEDS: docusate sodium 100mg/10ml UD cup PO SCH (22:08)
[2019-10-10 23:00] VITALS: BP 114/62
[2019-10-11] MEDS: Potassium Cl inj 20 MEQ in dextrose 5%-water 1,000 ML IV SCH ×2 (02:36→08:23)
[2019-10-11] MEDS: dextrose 5%-water 1,000 ML IV SCH (02:43)
[2019-10-11 03:00] VITALS: BP 102/60
[2019-10-11 05:50] LABS: BASOPHILS % (AUTO) 0.4 % (0-1); EOSINOPHILS # (AUTO) 0.1 X10'3 (0-0.9); HEMOGLOBIN 10.5 g/dl (14.0-17.9); LYMPHOCYTES # (AUTO) 0.4 X10'3 (1.1-4.8); MEAN CORPUSCULAR VOLUME 88.4 FL (78-98); MEAN PLATELET VOLUME 8.8 FL (7.4-10.4); MONOCYTES # (AUTO) 0.3 X10'3 (0-0.9); NEUTROPHILS # (AUTO) 4.5 X10'3 (1.8-7.7); WHITE BLOOD COUNT 5.3 X10'3 (4.5-11.0)
[2019-10-11 05:52] LABS: EOSINOPHILS % (AUTO) 2.2 % (0-6); HEMATOCRIT 29.8 % (42.0-52.0); LYMPHOCYTES % (AUTO) 7.7 % (21-51); MEAN CORPUSCULAR HEMOGLOBIN 31.1 PG (27.0-31.0); MEAN CORPUSCULAR HGB CONC 35.2 g/dL (33.0-36.5); MONOCYTES % (AUTO) 4.9 % (2-12); NEUTROPHILS % (AUTO) 84.8 % (42-75); RED BLOOD COUNT 3.37 X10'6 (4.70-6.10); RED CELL DISTRIBUTION WIDTH 16.8 % (11.5-14.5)
[2019-10-11 06:05] LABS: PLATELET COUNT 34 X10'3 (140-440)
[2019-10-11 06:26] LABS: ALANINE AMINOTRANSFERASE 41 U/L (12-78); ALBUMIN 1.6 G/DL (3.4-5.0); ALBUMIN/GLOBULIN RATIO 0.5 (1.1-1.5); ALKALINE PHOSPHATASE 106 IU/L (46-116); ANION GAP 9 (8-16); ASPARTATE AMINO TRANSFERASE 29 U/L (10-37); BILIRUBIN,TOTAL 0.5 MG/DL (0.1-1.0); BLOOD UREA NITROGEN 13 MG/DL (7-18); BUN/CREATININE RATIO 17.8 (5.4-32.0); CALCIUM 7.8 MG/DL (8.5-10.1); CHLORIDE 115 MMOL/L (99-107); CREATININE 0.73 MG/DL (0.60-1.10); GLUCOSE 132 MG/DL (70-104); POTASSIUM 3.5 MMOL/L (3.5-5.1); SODIUM 144 MMOL/L (135-145); TOTAL CARBON DIOXIDE 20.1 MMOL/L (24-32); TOTAL PROTEIN 4.7 G/DL (6.4-8.2); eGFR > 90 ML/MIN
--- NOTE | 2019-10-11 06:40 | NUR ---
Problems reprioritized. Patient report given, questions answered & plan of care reviewed with CARLY Alvarez.
[2019-10-11 07:00] VITALS: BP 144/77
--- NOTE | 2019-10-11 07:18 | NUR ---
Patient in room PCU 3008. I have received report from Fly and had the opportunity to ask questions and assume patient care.
[2019-10-11] MEDS: K and/or MAG REPLACEMENT MC SCH ×2 (08:00→20:00)
--- NOTE | 2019-10-11 08:00 | NUR ---
PAGER ID: [phone] MESSAGE: [id number], Alexandro Preez, please clarify IVF you want running? Patient has 2 orders. Also, platelets are 34 today. Thank you Kim CARROLL [phone]
[2019-10-11] MEDS: docusate sodium 100mg/10ml UD cup PO SCH ×2 (08:09→20:00)
[2019-10-11] MEDS: lactobacillus rhamnosus 10,000 MMU CELLS/CAPSULE PO SCH ×2 (08:09→22:08)
[2019-10-11] MEDS: piperacillin/tazo 3.375gm/50ml 50 ML IV SCH ×2 (08:09→17:06)
[2019-10-11 11:00] VITALS: BP 124/69
[2019-10-11] MEDS: potassium CL 20mEq in D5-1/2NS 1,000 ML IV SCH (11:07)
[2019-10-11] MEDS: vancomycin inj. 750 MG in normal saline 250ml IV soln 250 ML IV SCH (13:50)
[2019-10-11 15:00] VITALS: BP 116/68
--- NOTE | 2019-10-11 16:07 | NUR ---
received report from CARLY Alvarez Addendum: 10/11/19 at 1844 by Shena Aguillon RN agree with herson CARROLLscientific investigator
--- NOTE | 2019-10-11 16:15 | NUR ---
Problems reprioritized. Patient report given, questions answered & plan of care reviewed with Shena.
--- NOTE | 2019-10-11 16:25 | NUR ---
3008A Ana Mc Patients lung sounds are moist and the patient has trouble clearing sputum. Patient has Fluids running at 100/ml HR. Do you want to stop IVF and or obtain CXR? Kim U
--- NOTE | 2019-10-11 16:43 | NUR ---
paged dr. moreira promotional table spacer PAGER ID: [phone] MESSAGE: devendra pcu [phone] can you please call re tommy pena lungs sound awful spoke with MD let him know I just assumed care of pt and his lungs sound awful. per MD fluids turned off. admin lasix 20 IV BID and add ipatropium/albuterol q4hrs while awake and q2hrs prn
[2019-10-11] MEDS ORDERED: ipratropium/albuterol 3ml nebule NEB PRN (16:45)
[2019-10-11] MEDS: furosemide 20 MG/2 ML vial IV SCH ×2 (17:00→20:00)
--- NOTE | 2019-10-11 17:15 | NUR ---
RT IN TO SEE PT, LUNGS SOUND VERY WET, LASIX GIVEN PER MD ORDERS. RT ORAL SUCTIONED PT.
[2019-10-11 18:00] VITALS: BP 87/46
--- NOTE | 2019-10-11 18:33 | NUR ---
report given to CARLY Jones.
--- NOTE | 2019-10-11 18:35 | NUR ---
Patient in room PCU 3008. I have received report from Edith CARROLL and had the opportunity to ask questions and assume patient care.
[2019-10-11 22:00] VITALS: BP 128/59
[2019-10-12] MEDS: vancomycin inj. 750 MG in normal saline 250ml IV soln 250 ML IV SCH ×3 (00:09→23:52)
[2019-10-12] MEDS: piperacillin/tazo 3.375gm/50ml 50 ML IV SCH ×4 (00:09→23:52)
[2019-10-12 02:00] VITALS: BP 98/62
--- NOTE | 2019-10-12 06:15 | NUR ---
Patient in room PCU 3008. I have received report from CARLY Jones and had the opportunity to ask questions and assume patient care. Patient resting comfortably. Repositioned for comfort and pressure relief. Will continue to monitor.
--- NOTE | 2019-10-12 06:15 | NUR ---
Problems reprioritized. Patient report given, questions answered & plan of care reviewed with CARLY Jones.
--- NOTE | 2019-10-12 06:18 | NUR ---
Problems reprioritized. Patient report given, questions answered & plan of care reviewed with Ai CARROLL.
[2019-10-12 06:45] LABS: BASOPHILS % (AUTO) 0.2 % (0-1); EOSINOPHILS # (AUTO) 0.1 X10'3 (0-0.9); HEMATOCRIT 28.4 % (42.0-52.0); HEMOGLOBIN 10.1 g/dl (14.0-17.9); LYMPHOCYTES # (AUTO) 0.4 X10'3 (1.1-4.8); LYMPHOCYTES % (AUTO) 5.5 % (21-51); MEAN CORPUSCULAR HEMOGLOBIN 31.2 PG (27.0-31.0); MEAN CORPUSCULAR HGB CONC 35.5 g/dL (33.0-36.5); MEAN CORPUSCULAR VOLUME 87.8 FL (78-98); MEAN PLATELET VOLUME 9.2 FL (7.4-10.4); MONOCYTES # (AUTO) 0.4 X10'3 (0-0.9); NEUTROPHILS # (AUTO) 6.1 X10'3 (1.8-7.7); NEUTROPHILS % (AUTO) 86.3 % (42-75); RED BLOOD COUNT 3.24 X10'6 (4.70-6.10); RED CELL DISTRIBUTION WIDTH 16.4 % (11.5-14.5); WHITE BLOOD COUNT 7.1 X10'3 (4.5-11.0)
[2019-10-12 06:51] LABS: PLATELET COUNT 49 X10'3 (140-440)
--- NOTE | 2019-10-12 06:51 | NUR ---
Critical lab: Platelets 49. Notified primary RNAi.
--- NOTE | 2019-10-12 06:54 | NUR ---
Critical lab value, Platelet 49. Dr. Cohen notified. No new orders at this time.
[2019-10-12 06:58] VITALS: BP 102/59
[2019-10-12 07:11] LABS: ALANINE AMINOTRANSFERASE 32 U/L (12-78); ALBUMIN 1.5 G/DL (3.4-5.0); ALBUMIN/GLOBULIN RATIO 0.5 (1.1-1.5); ALKALINE PHOSPHATASE 107 IU/L (46-116); ANION GAP 7 (8-16); ASPARTATE AMINO TRANSFERASE 20 U/L (10-37); BILIRUBIN,TOTAL 0.5 MG/DL (0.1-1.0); BLOOD UREA NITROGEN 13 MG/DL (7-18); BUN/CREATININE RATIO 17.8 (5.4-32.0); CALCIUM 7.8 MG/DL (8.5-10.1); CHLORIDE 111 MMOL/L (99-107); CREATININE 0.73 MG/DL (0.60-1.10); GLUCOSE 102 MG/DL (70-104); POTASSIUM 3.5 MMOL/L (3.5-5.1); PREALBUMIN 8.6 MG/DL (19-36); SODIUM 142 MMOL/L (135-145); TOTAL CARBON DIOXIDE 24.3 MMOL/L (24-32); TOTAL PROTEIN 4.6 G/DL (6.4-8.2); eGFR > 90 ML/MIN
[2019-10-12] MEDS: docusate sodium 100mg/10ml UD cup PO SCH ×2 (08:00→20:00)
[2019-10-12] MEDS: K and/or MAG REPLACEMENT MC SCH ×2 (08:00→20:00)
[2019-10-12] MEDS: lactobacillus rhamnosus 10,000 MMU CELLS/CAPSULE PO SCH ×2 (08:16→21:11)
[2019-10-12] MEDS: furosemide 20 MG/2 ML vial IV SCH ×2 (08:17→20:00)
[2019-10-12 11:00] VITALS: BP 90/49
--- NOTE | 2019-10-12 12:01 | NUR ---
New order for single view chest xray due to decreased oxygen saturations.
[2019-10-12 15:00] VITALS: BP 102/50
[2019-10-12 18:00] VITALS: BP 105/50
--- NOTE | 2019-10-12 18:27 | NUR ---
Patient in room PCU 3008. I have received report from Ai CARROLL and had the opportunity to ask questions and assume patient care.
--- NOTE | 2019-10-12 21:13 | NUR ---
Ruslan held for BP on 90/42.
[2019-10-12 23:00] VITALS: BP 114/51
[2019-10-13] VITALS (7 sets, daily range): BP systolic 88–131; BP diastolic 46–73
[2019-10-13 05:38] LABS: BASOPHILS % (AUTO) 0.4 % (0-1); EOSINOPHILS # (AUTO) 0.2 X10'3 (0-0.9); EOSINOPHILS % (AUTO) 2.8 % (0-6); HEMATOCRIT 27.9 % (42.0-52.0); HEMOGLOBIN 9.9 g/dl (14.0-17.9); LYMPHOCYTES # (AUTO) 0.5 X10'3 (1.1-4.8); LYMPHOCYTES % (AUTO) 7.3 % (21-51); MEAN CORPUSCULAR HEMOGLOBIN 30.9 PG (27.0-31.0); MEAN CORPUSCULAR HGB CONC 35.3 g/dL (33.0-36.5); MEAN CORPUSCULAR VOLUME 87.4 FL (78-98); MEAN PLATELET VOLUME 8.5 FL (7.4-10.4); MONOCYTES # (AUTO) 0.4 X10'3 (0-0.9); MONOCYTES % (AUTO) 6.3 % (2-12); NEUTROPHILS # (AUTO) 5.2 X10'3 (1.8-7.7); NEUTROPHILS % (AUTO) 83.2 % (42-75); PLATELET COUNT 70 X10'3 (140-440); RED BLOOD COUNT 3.19 X10'6 (4.70-6.10); RED CELL DISTRIBUTION WIDTH 16.4 % (11.5-14.5); WHITE BLOOD COUNT 6.3 X10'3 (4.5-11.0)
[2019-10-13 05:43] LABS: ALANINE AMINOTRANSFERASE 28 U/L (12-78); ALBUMIN 1.5 G/DL (3.4-5.0); ALBUMIN/GLOBULIN RATIO 0.5 (1.1-1.5); ALKALINE PHOSPHATASE 100 IU/L (46-116); ANION GAP 3 (8-16); ASPARTATE AMINO TRANSFERASE 20 U/L (10-37); BILIRUBIN,TOTAL 0.5 MG/DL (0.1-1.0); BLOOD UREA NITROGEN 15 MG/DL (7-18); BUN/CREATININE RATIO 21.4 (5.4-32.0); CALCIUM 8.1 MG/DL (8.5-10.1); CHLORIDE 109 MMOL/L (99-107); GLUCOSE 114 MG/DL (70-104); POTASSIUM 3.2 MMOL/L (3.5-5.1); SODIUM 141 MMOL/L (135-145); TOTAL CARBON DIOXIDE 28.9 MMOL/L (24-32); TOTAL PROTEIN 4.7 G/DL (6.4-8.2); eGFR > 90 ML/MIN
--- NOTE | 2019-10-13 06:44 | NUR ---
Problems reprioritized. Patient report given, questions answered & plan of care reviewed with Ai CARROLL.
[2019-10-13 07:48] LABS: LARGE PLATELETS FEW; PLATELET ESTIMATE DECREASED
[2019-10-13] MEDS: K and/or MAG REPLACEMENT MC SCH ×2 (08:00→19:44)
[2019-10-13] MEDS: docusate sodium 100mg/10ml UD cup PO SCH ×2 (08:00→19:27)
[2019-10-13] MEDS: furosemide 20 MG/2 ML vial IV SCH ×2 (09:11→19:49)
[2019-10-13] MEDS: lactobacillus rhamnosus 10,000 MMU CELLS/CAPSULE PO SCH ×2 (09:11→19:43)
[2019-10-13] MEDS: piperacillin/tazo 3.375gm/50ml 50 ML IV SCH ×2 (09:11→15:32)
--- NOTE | 2019-10-13 09:52 | NUR ---
Reassessment: Pt s/p f/u BSS 10/12 with [facility] NPO with alternative nutrition d/t pt unsafe for PO intake. NG tube was confirmed in appropriate location and TF was started 10/10. TF is now at goal rate of 70 mL/hr and pt tolerating with low GRV of 5-85 mL which is WNL. Wt is up 5 kg however seems unlikely as it occurred in one day and with no documentation of how wt was obtained. LBM 10/12. Pt with routine Colace however not given d/t not being needed per med list. Pt awaiting placement per MD notes. Will continue to follow closely. Rec: 1. Continuous TF using Jevity 1.2 with goal rate of 70 mL/hr to provide: 1680 mL total volume/day, 2016 kcal, 93 g protein, and 1356 mL water 2. Additional 150 mL water flush Q4H; Monitor hydration status and need to adjust fluid flushes, Na 147 today 3. Prealbumin q / 4. Daily weights 5. PO diet advancement to regular as medically indicated if safe for PO intake per [facility] 6. Routine bowel care Addendum: 10/13/19 at [address] Amended: Links added.
[2019-10-13] MEDS ORDERED: potassium Cl 20 mEq SR tablet PO PRN ×2 (10:25)
[2019-10-13] MEDS ORDERED: potassium CL 10mEq/100ml bag 100 ML IV PRN (10:25)
[2019-10-13] MEDS ORDERED: magnesium 2GM in 50ml NS 50 ML IV PRN (10:25)
[2019-10-13] MEDS ORDERED: magnesium 4gm in 100ml NS 100 ML IV PRN (10:25)
[2019-10-13] MEDS ORDERED: POTASSIUM BICARB 20meq eff tab 20 MEQ TABLET.EFF PO PRN (10:37)
[2019-10-13] MEDS: POTASSIUM BICARB 20meq eff tab 20 MEQ TABLET.EFF PO PRN ×3 (11:18→19:43)
[2019-10-13] MEDS: vancomycin inj. 750 MG in normal saline 250ml IV soln 250 ML IV SCH (11:18)
--- NOTE | 2019-10-13 18:46 | NUR ---
Problems reprioritized. Patient report given, questions answered & plan of care reviewed with Ai CARROLL. Addendum: 10/13/19 at 1847 by Karen Alvarado RN Patient in room [facility] 300. I have received report from Ai CARROLL and had the opportunity to ask questions and assume patient care.
[2019-10-13] MEDS: NYSTATIN CREAM - 30GM TUBE TP SCH (20:03)
[2019-10-14] MEDS: piperacillin/tazo 3.375gm/50ml 50 ML IV SCH ×3 (00:20→16:00)
[2019-10-14 02:00] VITALS: BP 107/53
[2019-10-14 04:58] LABS: MAGNESIUM 1.9 MG/DL (1.5-2.4); POTASSIUM 3.7 MMOL/L (3.5-5.1)
--- NOTE | 2019-10-14 06:31 | NUR ---
Problems reprioritized. Patient report given, questions answered & plan of care reviewed with Ai CARROLL.
[2019-10-14 07:00] VITALS: BP 126/64
[2019-10-14] MEDS: K and/or MAG REPLACEMENT MC SCH (08:00)
[2019-10-14] MEDS: furosemide 20 MG/2 ML vial IV SCH (08:00)
[2019-10-14] MEDS: docusate sodium 100mg/10ml UD cup PO SCH (08:00)
[2019-10-14] MEDS: lactobacillus rhamnosus 10,000 MMU CELLS/CAPSULE PO SCH (08:25)
[2019-10-14] MEDS: NYSTATIN CREAM - 30GM TUBE TP SCH (08:26)
[2019-10-14 11:00] VITALS: BP 92/47
[2019-10-14 15:00] VITALS: BP 90/47
--- NOTE | 2019-10-14 18:42 | NUR ---
Patient in room PCU 3008. I have received report from Ai Ham RN and had the opportunity to ask questions and assume patient care. Patient is resting and awaiting transfer to [facility].
--- NOTE | 2019-10-14 20:55 | NUR ---
[facility] came to transport patient to [facility]. Patient left on 3L NC, both IV's still intact, NG tube in place and fierro catheter in. All paperwork and patient's belongings went with him.
== END 2019-10-14 20:50 | DRG 871 ==
LOC: ER 15:36 → ED HOLD 23:09 → MED 3N 10-06 00:53 → PCU 3S 10-06 16:22
PROVIDERS: ADMIT Family Medicine; ATTEND Family Medicine
PROC: 5A09457 Assistance with Respiratory Ventilation, 24-96 Consecutive Hours, Continuous Positive Airway Pressure (ICD-10-PCS; principal; 2019-10-06)
PROC: B32T1ZZ Computerized Tomography (CT Scan) of Left Pulmonary Artery using Low Osmolar Contrast (ICD-10-PCS; 2019-10-06)
PROC: B3201ZZ Computerized Tomography (CT Scan) of Thoracic Aorta using Low Osmolar Contrast (ICD-10-PCS; 2019-10-06)
PROC: B32S1ZZ Computerized Tomography (CT Scan) of Right Pulmonary Artery using Low Osmolar Contrast (ICD-10-PCS; 2019-10-06)
DX: A41.9 Sepsis, unspecified organism (principal); J96.01 Acute respiratory failure with hypoxia; G93.41 Metabolic encephalopathy; E43 Unspecified severe protein-calorie malnutrition; J18.1 Lobar pneumonia, unspecified organism; E87.0 Hyperosmolality and hypernatremia; R65.20 Severe sepsis without septic shock; E86.0 Dehydration; G93.0 Cerebral cysts; K72.90 Hepatic failure, unspecified without coma; G30.9 Alzheimer's disease, unspecified; F02.80 Dementia in other diseases classified elsewhere, unspecified severity, without behavioral disturbance, psychotic disturbance, mood disturbance, and anxiety; I95.9 Hypotension, unspecified; D69.6 Thrombocytopenia, unspecified; F20.9 Schizophrenia, unspecified; G20 Parkinson's disease; N19 Unspecified kidney failure; R56.9 Unspecified convulsions; R68.0 Hypothermia, not associated with low environmental temperature; Z51.5 Encounter for palliative care; Z87.440 Personal history of urinary (tract) infections; Z74.01 Bed confinement status; Z79.899 Other long term (current) drug therapy; Z66 Do not resuscitate; Z68.20 Body mass index [BMI] 20.0-20.9, adult
CPT/HCPCS: 36415; 36600; 70450; 71045; 71275; 74018; 80053; 80202; 80305; 80320; 81001; 82140; 82803; 82948; 83605; 83735; 84100; 84132; 84134; 84145; 84443; 85018; 85025; 85610; 85730; 87040; 87081; 87088; 92508; 92616; 93005; 94640; 94660; 94760; 96361; 96365; 96366; 96368; 96375; 97112; 97161; 97162; 97530; 99285; G0378; J0461; J0696; J1265; J1644; J1940; J2543; J3370; J3475; J3480; J7030; J7040; J7050; J7070; Q2009; Q9967

== ENCOUNTER → 2019-10-23 | Outpatient (CLI) | payer OTHER ==
[~2019-10-23] MED LIST changes: -NO HOME MEDS; -PANT-47 PO; -SUCR1TAB PO; -TAMS0.4C32 PO; +gadobutrol 10mmol/10ml inj. IV ONE
--- NOTE | 2019-10-23 12:30 | NUR ---
Dr. Guillermo called nursing airport operations supervisor with critical results from MRI. Pt is a outpatient from [facility]. I called and spoke with [facility], pts nurse Demetra @[phone] giving her the critical results over the phone, assuring her to call ordering MD Dr. Lira urgently with results. Faxed report results to be sent pending records for release verification.
== END | disposition home or self-care (01) ==
LOC: RAD 10:54
PROVIDERS: ATTEND Internal Medicine
DX: S06.5X9A Traumatic subdural hemorrhage with loss of consciousness of unspecified duration, initial encounter (principal); J96.01 Acute respiratory failure with hypoxia; R41.82 Altered mental status, unspecified; F03.90 Unspecified dementia, unspecified severity, without behavioral disturbance, psychotic disturbance, mood disturbance, and anxiety; F17.200 Nicotine dependence, unspecified, uncomplicated; X58.XXXA Exposure to other specified factors, initial encounter; Y93.89 Activity, other specified; Y92.89 Other specified places as the place of occurrence of the external cause; Y99.8 Other external cause status
CPT/HCPCS: 70553; A9585